=== PATIENT | male | born 1970 | race Caucasian/White ===

== ENCOUNTER 2018-08-11 23:48 | Emergency (ER) | payer OTHER ==
--- NOTE | ~2018-08-11 | EKG ---
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
[~2018-08-11 23:48] MED LIST: B12100 MC1 PO; BACTRIM DS 8001 TA1 PO; BACTROBAN CREAM15 GM PO; CORDROL20 MG PO; DICYCLOMINE20 MG PO; HYDROCODONE BIT1 T11 PO; IBUPROFEN MODE200 MG PO; NKHM; ULTRAM50 MG PO; VICODIN 500 MG-1 TAB PO
[2018-08-12 00:17] LABS: BASO # 0.1 10*3/uL (0.0-0.1); BASO % 0.6 % (0.0-1.0); EOS # 0.3 10*3/uL (0.0-0.4); HEMATOCRIT 41.2 % (42.0-52.0); HEMOGLOBIN 14.1 g/dl (14.0-18.0); LYMPH # 4.6 10*3/uL (1.3-4.4); LYMPH % 28.3 % (27.0-41.0); MEAN CELL VOLUME 90.2 fl (80.0-94.0); MEAN CORPUSCULAR HGB 30.9 pg (27.0-31.0); MEAN CORPUSCULAR HGB CONC 34.2 g/dl (33.0-37.0); MEAN PLATELET VOLUME 9.8 fl (9.6-12.3); MONO # 1.2 10*3/uL (0.1-1.0); MONO % 7.4 % (3.0-9.0); NEUT # 9.8 10*3/uL (2.3-7.9); NEUT % 61.1 % (47.0-73.0); PLATELET COUNT AUTOMATED 320 10*3/uL (130-400); RED BLOOD COUNT 4.57 10*6/uL (4.50-5.90); RED CELL DISTRI WIDTH 12.5 % (0-14.5); WHITE BLOOD COUNT 16.1 10*3/uL (4.8-10.8)
[2018-08-12 00:34] LABS: ACT PARTIAL THROMBO TIME 26.5 SECONDS (20.0-32.1); ALBUMIN 3.5 gm/dl (3.1-4.5); ALKALINE PHOSPHATASE 79 U/L (45-117); BUN 14 mg/dl (7-24); CHLORIDE 104 mmol/L (98-107); CREATININE 1.24 mg/dL (0.70-1.30); INTERNATIONAL NORM RATIO 1.1 (2.0-3.5); POTASSIUM 3.2 mmol/L (3.5-5.1); SGOT/AST 11 IU/L (3-35); SGPT/ALT 18 U/L (12-78); SODIUM 137 mmol/L (136-145)
[2018-08-12 00:44] LABS: TROPONIN I < 0.015 ng/ml (<0.045)
[2018-08-12] MEDS ORDERED: AVPAK AZITHROM250 M1 PO (01:17)
[2018-08-12] MEDS ORDERED: TESSALON PERLE100 MG PO (01:17)
== END 2018-08-12 02:06 | disposition home or self-care (01) ==
LOC: ED 23:48
PROVIDERS: Student in an Organized Health Care Education/Training Program
DX: R06.02 Shortness of breath (principal); R05 Cough; F17.200 Nicotine dependence, unspecified, uncomplicated; Z88.0 Allergy status to penicillin; Z88.1 Allergy status to other antibiotic agents; Z88.8 Allergy status to other drugs, medicaments and biological substances

== ENCOUNTER 2022-04-06 10:08 | Emergency (ER) | payer OTHER ==
[~2022-04-06 10:08] MED LIST changes: +AVPAK AZITHROM250 M1 PO; +TESSALON PERLE100 MG PO
[2022-04-06] MEDS ORDERED: PERCOCET 5-3251 EACH PO (11:33)
== END 2022-04-06 11:54 | disposition home or self-care (01) ==
LOC: ED 10:08
DX: S92.325A Nondisplaced fracture of second metatarsal bone, left foot, initial encounter for closed fracture (principal); Z88.0 Allergy status to penicillin; Z88.8 Allergy status to other drugs, medicaments and biological substances; W20.8XXA Other cause of strike by thrown, projected or falling object, initial encounter; Y93.89 Activity, other specified; Y92.89 Other specified places as the place of occurrence of the external cause; Y99.0 Civilian activity done for income or pay

== ENCOUNTER → 2022-04-14 | Outpatient (CLI) | payer OTHER ==
[~2022-04-14] MED LIST changes: +PERCOCET 5-3251 EACH PO
== END | disposition home or self-care (01) ==
LOC: ORTHO 01:34
PROVIDERS: ATTEND Orthopaedic Surgery
DX: S92.302D Fracture of unspecified metatarsal bone(s), left foot, subsequent encounter for fracture with routine healing (principal); X58.XXXD Exposure to other specified factors, subsequent encounter

== ENCOUNTER → 2022-04-28 | Outpatient (CLI) | payer SELFPAY | END | disposition home or self-care (01) | LOC: ORTHO 04:51 | PROVIDERS: ATTEND Orthopaedic Surgery | DX: S92.322D Displaced fracture of second metatarsal bone, left foot, subsequent encounter for fracture with routine healing (principal); X58.XXXD Exposure to other specified factors, subsequent encounter ==

== ENCOUNTER 2024-05-25 16:50 | Emergency (ER) | payer OTHER ==
[~2024-05-25] VITALS: Ht 177.8 cm; Wt 104.3 kg
[2024-05-25] MEDS ORDERED: PREDNISONE50 MG PO (20:13)
[2024-05-25] MEDS ORDERED: predniSONE 20 MG TAB PO ONE (20:15)
== END 2024-05-25 20:26 | disposition home or self-care (01) ==
LOC: ED 16:50
DX: J06.9 Acute upper respiratory infection, unspecified (principal); Z20.822 Contact with and (suspected) exposure to COVID-19; Z88.0 Allergy status to penicillin; Z88.8 Allergy status to other drugs, medicaments and biological substances